=== PATIENT | male | born 2000 | race African-American/Black ===

== ENCOUNTER 2024-09-17 13:54 | Outpatient (AMB) | payer OTHER, SELFPAY ==
--- NOTE | 2024-09-17 15:09 | AM.OFFWIN_ITS ---
Intake Vital Signs 09/17/24 15:11 Height 5 ft Weight 146 lb BMI 28.5 BP 112/78 Blood Pressure Location Rt brachial Position Sitting Pulse 94 Pulse Source Pulse Oximeter Temp 98.2 F Temp Source Oral Pulse Oximetry (%) 97 Oxygen Delivery Method Room Air Intake Visit Reasons: [employer] fever, no appetite, headache, running nose Intake Note: Patient here for fever,runny nose,loss of appetite and headaches since saturday. pt is 6 weeks Patient Tobacco Use Status: Never used Tobacco Allergies No Known Allergies Allergy (Verified 09/17/24 15:11) Do you need a note to return to daycare/school/sports/work: Yes HPI HPI Comments History of Present Illness Details History The patient is a 24-year-old male presenting with symptoms of upper respiratory tract infection and ear pain. - Symptoms started four days ago, accomp anied by loss of appetite and nausea and one episode of vomiting. - Congestion began today, along with a s tuffy nose. - The patient suspects a fever, though n o temperature was officially recorded. - Reports ear popping, primarily at nigh t, experienced when blowing her nose. - Denies shortness of breath, wheezing, ear pain, or sinus pain. - No history of asthma or COPD, and she is a non-smoker. - Pt is self reported 6 weeks , has not sought medical care yet. Physical Exam General: Cooperative, healthy appearing, comfortable and no acute distress Orientation/consciousness: Patient oriented x3 Limitations: Head: Normal to inspection Ears: Hearing grossly normal bilaterally, external ears normal and TM's sliver of purulent effusion bilaterally Nose: Normal external nose present, Normal nares present Face and sinus: Normal facial exam and Yes sinuses nontender Mouth: Normal oral and palatal mucosa present and moist mucous membranes Throat: Yes tonsils normal, Yes uvula midline. Posterior oropharynx erythema Eyes: Appearance normal, both eyes and all related structures Neck: Normal visual inspection Respiratory: Clear to auscultation bilaterally. Normal respiratory effort, able to speak in complete sentences, Actively coughing, no respiratory distress, not tachypneic, no tripod positioning and no use of accessory muscles Cardiovascular: Regular rate and rhythm. Normal S1 and S2 Skin: No rashes or lesions noted Neuro: Patient oriented x3 Extremities: Normal to inspection and Yes no clubbing, cyanosis or edema PFSH Social History Patient Tobacco Use Status: Never used Tobacco Review of Systems Const All systems reviewed & are unremarkable except as noted in HPI and below Physical Exam Vital Signs: Last Vital Signs Temp 98.2 F 09/17/24 15:11 Pulse 94 09/17/24 15:11 BP 112/78 09/17/24 15:11 Pulse Ox 97 09/17/24 15:11 Oxygen Delivery Method Room Air 09/17/24 15:11 BMI result Body Mass Index 28.5 Assessment & Plan Assessment & Plan (1) URI, acute: Code(s): J06.9 - Acute upper respiratory infection, unspecified Plan: as below (2) Bilateral otitis media with effusion: Code(s): H65.93 - Unspecified nonsuppurative otitis media, bilateral Plan: Plan For treatment of the upper respiratory tract infection, a regimen of amoxicillin 875 mg every 12 hours for five days was initiated due to the presence of bilateral ear infection Acute Otitis Media, safe in . Testing for influenza, COVID-19, and RSV was completed, and follow-up will be arranged following the test results. [id number] options suitable for should be verified with a pharmacist, reflecting an unclear transcribed mistake regarding the patient's status. Patient was informed and verbally consented to the use of an ambient scribe for clinic note documentation during this visit Orders: Orders SARS-CoV2/FLU/RSV Today J06.9 - Acute upper respiratory infection, unspecified Medications: New amoxicillin 875 mg PO Q12H 10 tabs 0RF Coding Level of Care Code New Pt Level 4 (71683) Diagnoses URI, acute J06.9 Bilateral otitis media with effusion H65.93
[2024-09-17 15:11] VITALS: BP 112/78; PULSE 94; TEMP 36.8; O2SAT 97; BMI 28.5
== END 2024-09-17 15:35 | disposition home or self-care (01) ==
PROVIDERS: Visit Provider Physician Assistant
DX: J06.9 Acute upper respiratory infection, unspecified (principal); H65.93 Unspecified nonsuppurative otitis media, bilateral

== ENCOUNTER 2024-09-17 13:54 | Outpatient (REF) | payer OTHER, SELFPAY ==
[2024-09-18 11:11] LABS: Influenza A PCR NEGATIVE (Negative); Influenza B PCR NEGATIVE (Negative); Resp Syncy Virus RNA Qual PCR NEGATIVE (Negative); SARS COV2 PCR INHOUSE NEGATIVE (Negative)
== END 2024-09-17 13:55 | disposition home or self-care (01) ==
LOC: HO.LAB 13:54
PROVIDERS: Physician Assistant
DX: J06.9 Acute upper respiratory infection, unspecified (principal); H65.93 Unspecified nonsuppurative otitis media, bilateral
CPT/HCPCS: 0241U; 99202